=== PATIENT | female | born 1990 | race American Indian/Alaskan Native ===

== ENCOUNTER 2016-07-16 12:29 | Emergency (ER) | payer MEDICAID ==
[2016-07-16 12:54] VITALS: BP 106/83
[2016-07-16] MEDS ORDERED: NORCO 5/325 PO ONE (16:27)
[2016-07-16] MEDS ORDERED: MOTRIN PO ONE (16:27)
--- NOTE | 2016-07-16 23:27 | Emergency Department Report ---
Entered by CLARISSA SOUSA, acting as scribe for ROSIO REYES NP. ED ENT HPI - General Chief complaint: Dental/Oral Stated complaint: Toothache Time Seen by Provider: 07/16/16 16:12 Source: patient Mode of arrival: Ambulatory Limitations: No Limitations - History of Present Illness Initial comments: 26 y/o female presents with toothache that started 6 months ago and associated right mandibular swelling that started 2 days ago. Pt notes she visited the dentist and they told her she needs a root canal, but hasn't gotten it due to financial reasons. She notes using OTC "putty" to cover the cracked tooth. Pt denies chest pain, fever, chills, abd pain, ROSAS, dizziness, or SOB. LMP 4 days ago. MD complaint: tooth pain, other (dental abscess) -: month(s) (6) Location: tooth # (18) Severity: mild Severity scale (0 -10): 4 Quality: aching Consistency: constant Improves with: none Worsens with: none Associated Symptoms: toothache. denies: fever, cough - Related Data Previous Rx's Medication Instructions Recorded Last Taken Type Acetaminophen/Codeine [Tylenol 1 tab PO Q6H PRN #12 tab 07/16/16 Unknown Rx /Codeine # 3 tab] Ibuprofen [Motrin 600 MG tab] 600 mg PO Q8H PRN #30 tablet 07/16/16 Unknown Rx Penicillin Vk [Veetids TAB] 250 mg PO QID #40 tablet 07/16/16 Unknown Rx Allergies Allergy/AdvReac Type Severity Reaction Status Date / Time No Known Allergies Allergy Unverified 07/16/16 12:54 ED Dental HPI - General Chief complaint: Dental/Oral Stated complaint: Toothache Source: patient Mode of arrival: Ambulatory Limitations: No Limitations - Related Data Previous Rx's Medication Instructions Recorded Last Taken Type Acetaminophen/Codeine [Tylenol 1 tab PO Q6H PRN #12 tab 07/16/16 Unknown Rx /Codeine # 3 tab] Ibuprofen [Motrin 600 MG tab] 600 mg PO Q8H PRN #30 tablet 07/16/16 Unknown Rx Penicillin Vk [Veetids TAB] 250 mg PO QID #40 tablet 07/16/16 Unknown Rx Allergies Allergy/AdvReac Type Severity Reaction Status Date / Time No Known Allergies Allergy Unverified 07/16/16 12:54 ED Review of Systems Comment: All other systems reviewed and negative Constitutional: denies: chills, fever ENT: dental pain (tooth number 18 cracked with OTC "putty", tooth number 17 cracked) Respiratory: denies: cough, shortness of breath Cardiovascular: denies: chest pain Gastrointestinal: denies: abdominal pain, nausea, vomiting Skin: other (left sided mandibular swelling) Neurological: denies: headache, numbness ED Past Medical Hx - Past Medical History Previous Medical History?: No Additional medical history: kidney stones - Surgical History Additional Surgical History: kidney stent - Social History Smoking Status: Current Every Day Smoker Substance Use Type: Alcohol - Medications Home Medications: Home Medications Medication Instructions Recorded Confirmed Last Taken Type Acetaminophen/Codeine [Tylenol 1 tab PO Q6H PRN #12 tab 07/16/16 Unknown Rx /Codeine # 3 tab] Ibuprofen [Motrin 600 MG tab] 600 mg PO Q8H PRN #30 tablet 07/16/16 Unknown Rx Penicillin Vk [Veetids TAB] 250 mg PO QID #40 tablet 07/16/16 Unknown Rx ED Physical Exam - General Limitations: No Limitations General appearance: alert, in no apparent distress - Head Head exam: Present: atraumatic, normocephalic - Eye Eye exam: Present: normal appearance, PERRL, EOMI Pupils: Present: normal accommodation - ENT ENT exam: Present: normal exam, normal orophraynx, mucous membranes moist, TM's normal bilaterally, normal external ear exam, other (pain with OTC "putty" in tooth number 18, tooth number 17 cracked, no trishmus, gigival enlargement or swelling, no pulp) - Expanded ENT Exam Expanded Ear exam: Present: normal external inspection. Absent: auricular hematoma, auricular trauma Mouth exam: Present: normal external inspection, tongue normal. Absent: drooling, trismus, muffled voice, tongue elevation, laceration Teeth exam: Present: fractured tooth # (18), dental tenderness # (18). Absent: gingival enlargement Throat exam: Positive: normal inspection. Negative: tonsillar erythema, tonsillomegaly, tonsillar exudate, R peritonsillar mass, L peritonsillar mass - Neck Neck exam: Present: normal inspection, full ROM. Absent: tenderness, meningismus, lymphadenopathy, thyromegaly - Respiratory Respiratory exam: Present: normal lung sounds bilaterally. Absent: respiratory distress, wheezes, rales, rhonchi, stridor - Cardiovascular Cardiovascular Exam: Present: regular rate, normal rhythm, normal heart sounds. Absent: systolic murmur, diastolic murmur, rubs, gallop - GI/Abdominal GI/Abdominal exam: Present: soft, normal bowel sounds. Absent: distended, tenderness, guarding, rebound, rigid - Rectal Rectal exam: Present: deferred - Extremities Exam Extremities exam: Present: normal inspection, full ROM, normal capillary refill. Absent: tenderness, pedal edema, joint swelling, calf tenderness - Back Exam Back exam: Present: normal inspection, full ROM. Absent: tenderness, CVA tenderness (R), CVA tenderness (L), paraspinal tenderness, vertebral tenderness - Neurological Exam Neurological exam: Present: alert, altered, CN II-XII intact, reflexes normal. Absent: motor sensory deficit - Psychiatric Psychiatric exam: Present: normal affect, normal mood - Skin Skin exam: Present: warm ED Course Vital Signs 07/16/16 12:51 Temperature 98.8 F Pulse Rate 78 Respiratory 18 Rate Blood Pressure 106/83 O2 Sat by Pulse 100 Oximetry ED Disposition Clinical Impression: Pain, dental Disposition: DISCHARGED TO HOME OR SELFCARE Is pt being admited?: No Does the pt Need Aspirin: No Condition: Stable Instructions: Toothache (ED) Additional Instructions: Take medication as directed. No drinking, driving or operating heavy machinery while taking medication. Follow up with dentistry [facility] Prescriptions: Acetaminophen/Codeine [Tylenol /Codeine # 3 tab] 1 tab PO Q6H PRN #12 tab PRN Reason: Pain , Severe (7-10) Ibuprofen [Motrin 600 MG tab] 600 mg PO Q8H PRN #30 tablet PRN Reason: Pain Penicillin Vk [Veetids TAB] 250 mg PO QID #40 tablet Referrals: PRIMARY CARE,MD [Primary Care Provider] - 3-5 Days [facility] [Outside] - 3-5 Days [facility] [Outside] - 3-5 Days Forms: Work/School Release Form(ED) Time of Disposition: 16:31 This documentation as recorded by the LARS lo RYAN,accurately reflects the service I personally performed and the decisions made by AMY lam SABRENA D, NP.
== END 2016-07-16 17:13 | disposition home or self-care (01) ==
LOC: ED 12:29
DX: K08.89 Other specified disorders of teeth and supporting structures (principal); F17.200 Nicotine dependence, unspecified, uncomplicated
CPT/HCPCS: 99282

== ENCOUNTER 2020-05-18 04:30 | Emergency (ER) | payer MEDICAID ==
[2020-05-18 04:38] VITALS: BP 114/63
[2020-05-18 05:01] LABS: Mucus,Urine FEW /HPF
[2020-05-18 05:39] LABS: Bilirubin,Urine NEG (Negative); Blood,Urine SM (Negative); Color,Urine Yellow (Yellow); Protein,Urine <15 mg/dL mg/dL (Negative); Urobilinogen,Urine < 2.0 mg/dL (<2.0)
[2020-05-18 05:42] LABS: HCG Qualitative,Urine Negative (Negative)
--- NOTE | 2020-05-18 05:52 | Emergency Department Report ---
ED Abdominal Pain HPI - General Chief Complaint: Abdominal Pain Stated Complaint: POSS ALLERGIC REACTION Source: patient Mode of arrival: Ambulatory Limitations: No Limitations - History of Present Illness Initial Comments: Patient is a 30-year-old -Wel[place] female who presents with bilateral lower abdominal pain described as crampy achy. Patient endorses frequency urgen cy and dysuria. Patient denies vaginal discharge or concern for STI. There is been no fever or chills. No nausea or vomiting. Symptoms are exacerbated by voiding. Symptoms are relieved by nothing tried. MD Complaint: abdominal pain - Related Data Previous Rx's Medication Instructions Recorded Last Taken Type Acetaminophen/Codeine [Tylenol 1 tab PO Q6H PRN #12 tab 07/16/16 Unknown Rx /Codeine # 3 tab] Ibuprofen [Motrin 600 MG tab] 600 mg PO Q8H PRN #30 tablet 07/16/16 Unknown Rx Penicillin Vk [Veetids TAB] 250 mg PO QID #40 tablet 07/16/16 Unknown Rx Ibuprofen [Motrin 800 MG tab] 800 mg PO Q8HR PRN #30 tablet 05/18/20 Unknown Rx Nitrofurantoin [place]/M-Cryst 100 mg PO BID 7 Days #14 capsule 05/18/20 Unknown Rx [Macrobid CAP] Allergies Allergy/AdvReac Type Severity Reaction Status Date / Time No Known Allergies Allergy Unverified 07/16/16 12:54 ED Review of Systems ROS: Stated complaint: POSS ALLERGIC REACTION Other details as noted in HPI Constitutional: denies: chills, fever Eyes: denies: eye pain, eye discharge, vision change ENT: denies: ear pain, throat pain Respiratory: denies: cough, shortness of breath, wheezing Cardiovascular: denies: chest pain, palpitations Endocrine: no symptoms reported Gastrointestinal: denies: abdominal pain, nausea, diarrhea Genitourinary: urgency, dysuria, frequency. denies: hematuria, discharge Musculoskeletal: denies: back pain, joint swelling, arthralgia Skin: denies: rash, lesions Neurological: denies: headache, weakness, paresthesias Psychiatric: denies: anxiety, depression Hematological/Lymphatic: denies: easy bleeding, easy bruising ED Past Medical Hx - Past Medical History Additional medical history: kidney stones, fibroids - Surgical History Additional Surgical History: kidney stent - Social History Smoking Status: Current Some Day Smoker - Medications Home Medications: Home Medications Medication Instructions Recorded Confirmed Last Taken Type Acetaminophen/Codeine [Tylenol 1 tab PO Q6H PRN #12 tab 07/16/16 Unknown Rx /Codeine # 3 tab] Ibuprofen [Motrin 600 MG tab] 600 mg PO Q8H PRN #30 tablet 07/16/16 Unknown Rx Penicillin Vk [Veetids TAB] 250 mg PO QID #40 tablet 07/16/16 Unknown Rx Ibuprofen [Motrin 800 MG tab] 800 mg PO Q8HR PRN #30 tablet 05/18/20 Unknown Rx Nitrofurantoin [place]/M-Cryst 100 mg PO BID 7 Days #14 capsule 05/18/20 Unknown Rx [Macrobid CAP] ED Physical Exam - General Limitations: No Limitations General appearance: alert, in no apparent distress - Head Head exam: Present: atraumatic, normocephalic - Eye Eye exam: Present: normal appearance, EOMI Pupils: Present: normal accommodation - ENT ENT exam: Present: mucous membranes moist - Neck Neck exam: Present: normal inspection, full ROM. Absent: tenderness - Respiratory Respiratory exam: Present: normal lung sounds bilaterally. Absent: respiratory distress, wheezes, stridor - Cardiovascular Cardiovascular Exam: Present: regular rate, normal rhythm. Absent: systolic murmur, diastolic murmur, rubs, gallop - GI/Abdominal GI/Abdominal exam: Present: soft, normal bowel sounds. Absent: distended, tenderness, guarding, rebound, rigid, bruit, hernia - Rectal Rectal exam: Present: deferred - Extremities Exam Extremities exam: Present: normal inspection, full ROM - Back Exam Back exam: Present: normal inspection, full ROM. Absent: CVA tenderness (R), CVA tenderness (L), vertebral tenderness - Neurological Exam Neurological exam: Present: alert, oriented X3, CN II-XII intact, normal gait - Psychiatric Psychiatric exam: Present: normal affect, normal mood - Skin Skin exam: Present: warm, dry, intact, normal color. Absent: rash ED Course Vital Signs 05/18/20 04:37 Temperature 97.8 F Pulse Rate 78 Respiratory 16 Rate Blood Pressure 114/63 O2 Sat by Pulse 98 Oximetry ED Medical Decision Making - Lab Data Labs 05/18/20 Unknown Urine Color Yellow Urine Turbidity Cloudy Urine pH 6.0 Ur Specific [place] 1.016 Urine Protein <15 mg/dl Urine Glucose (UA) Neg Urine Ketones Neg Urine Blood Sm Urine Nitrite Neg Ur Reducing Substances Not Reportable Urine Bilirubin Neg Urine Ictotest Not Reportable Urine Urobilinogen < 2.0 Ur Leukocyte Esterase Mod Urine WBC (Auto) 28.0 H Urine RBC (Auto) 5.0 U Epithel Cells (Auto) 3.0 Urine Mucus Few Urine HCG, Qual Negative - Medical Decision Making Urine positive for leukocytes white blood cells plan treat for UTI. Patient will follow up with primary care doctor in 2 to 3 days. Patient verbalized agreement and understanding with discharge plan. Patient DC'd home in stable condition at this time. Critical care attestation.: If time is entered above; I have spent that time in minutes in the direct care of this critically ill patient, excluding procedure time. ED Disposition Clinical Impression: UTI (urinary tract infection) Qualifiers: Urinary tract infection type: acute cystitis Hematuria presence: without hematuria Qualified Code(s): N30.00 - Acute cystitis without hematuria Disposition: DC-01 TO HOME OR SELFCARE Is pt being admited?: No Does the pt Need Aspirin: No Condition: Stable Instructions: Abdominal Pain (ED), Urinary Tract Infection, Adult Additional Instructions: hydrate as discussed and agreed Prescriptions: Nitrofurantoin [place]/M-Cryst [Macrobid CAP] 100 mg PO BID 7 Days #14 capsule Ibuprofen [Motrin 800 MG tab] 800 mg PO Q8HR PRN #30 tablet PRN Reason: pain Referrals: PRIMARY CARE,MD [Primary Care Provider] - 3-5 Days Forms: Work/School Release Form(ED) Time of Disposition: 05:56
== END 2020-05-18 06:01 | disposition home or self-care (01) ==
LOC: ED 04:30
DX: N39.0 Urinary tract infection, site not specified (principal); F17.200 Nicotine dependence, unspecified, uncomplicated; Z79.899 Other long term (current) drug therapy
CPT/HCPCS: 81001; 81025; 87086; 99283

== ENCOUNTER 2020-05-27 05:00 | Emergency (ER) | payer MEDICAID ==
[2020-05-27 05:50] LABS: Basophils # (Auto) 0.1 K/mm3 (0.0-0.1); Basophils % (Auto) 1.3 % (0.0-1.8); Eosinophils # (Auto) 0.1 K/mm3 (0.0-0.4); Eosinophils % (Auto) 1.6 % (0.0-4.3); Hematocrit 37.2 % (30.3-42.9); Lymphocytes # (Auto) 4.4 K/mm3 (1.2-5.4); Lymphocytes % (Auto) 50.6 % (13.4-35.0); Mean Corpuscular HGB Conc 35 % (30-34); Mean Corpuscular Volume 93 fl (79-97); Monocytes # (Auto) 0.8 K/mm3 (0.0-0.8); Monocytes % (Auto) 9.4 % (0.0-7.3); Platelet Count 321 K/mm3 (140-440); Red Blood Count 3.99 M/mm3 (3.65-5.03); Red Cell Distribution Width 13.1 % (13.2-15.2)
[2020-05-27 05:54] LABS: Bilirubin,Urine NEG (Negative); Blood,Urine SM (Negative); Color,Urine Yellow (Yellow); Mucus,Urine FEW /HPF; Protein,Urine <15 mg/dL mg/dL (Negative)
[2020-05-27 06:50] LABS: Alanine Aminotransferase 9 units/L (7-56); Albumin 4.3 g/dL (3.9-5); BUN/Creatinine Ratio 10; Blood Urea Nitrogen 8 mg/dL (7-17); Calcium 10.3 mg/dL (8.4-10.2); Hemolysis Index 6
[2020-05-27 07:11] VITALS: BP 113/77
== END 2020-05-27 07:51 | disposition left against medical advice (07) ==
LOC: ED 05:00
DX: R10.30 Lower abdominal pain, unspecified (principal); Z53.21 Procedure and treatment not carried out due to patient leaving prior to being seen by health care provider
CPT/HCPCS: 36415; 80053; 81001; 85025